=== PATIENT | male | born 1965 | race Caucasian/White ===

== ENCOUNTER 2022-05-22 22:38 | Emergency (ER) | payer SELFPAY ==
[2022-05-23] MEDS ORDERED: MORPHINE 4 MG/ML SYR ONE (00:24)
[2022-05-23] MEDS ORDERED: KETOROLAC 30 MG/ML INJ ONE (00:24)
--- NOTE | 2022-05-23 00:43 | EDPHYS ---
Physician Documentation [facility] Name: Lenin Marte Jr Age: 56 yrs Sex: Male : 1965 Arrival Date: 05/22/2022 Time: 22:41 Bed 7 Private MD: ED Physician Pravin Johns HPI: 05/23 00:00 This 56 yrs old Male presents to ER via Ambulatory with complaints of Mouth Problem. cp 00:00 The patient presents with pain. The problem is located in the right jaw. Onset: The cp symptoms/episode began/occurred gradually, and became worse today. Duration: The symptoms are continuous, and are steadily getting worse. Associated signs and symptoms: Pertinent negatives: dysphagia, fever, inability to eat. Severity of symptoms: in the emergency department the symptoms are unchanged, despite home interventions. Historical: - Allergies: 05/22 22:54 Stadol; as6 - Home Meds: 22:54 None [Active]; as6 - PMHx: 22:54 None; as6 - PSHx: 22:54 None; as6 - Immunization history:: Client reports having NOT received the Covid vaccine. - Social history:: Smoking status: Patient reports the use of cigarette tobacco products, smokes one pack cigarettes per day. ROS: 05/23 00:05 Constitutional: Negative for body aches, chills, fever, poor PO intake. cp 00:05 Eyes: Negative for injury, pain, redness, and discharge. cp 00:05 ENT: Positive for dental pain, Negative for drainage from ear(s), ear pain, sore throat, difficulty swallowing, difficulty handling secretions. 00:05 Neck: Negative for pain with movement, pain at rest, stiffness. 00:05 Respiratory: Negative for cough, shortness of breath, wheezing. 00:05 Skin: Negative for rash. 00:05 Neuro: Negative for headache. 00:05 All other systems are negative. Exam: 00:10 Constitutional: The patient appears in no acute distress, alert, awake, non-toxic, well cp developed, well nourished, uncomfortable. 00:10 Head/Face: Normocephalic, atraumatic. cp 00:10 Eyes: Periorbital structures: appear normal, Conjunctiva: normal, no exudate, no injection, Sclera: no appreciated abnormality, Lids and lashes: appear normal, bilaterally. 00:10 ENT: External ear(s): are unremarkable, Ear canal(s): are normal, clear, TM's: dullness, bilaterally, Nose: is normal, Mouth: Lips: moist, Oral mucosa: pink and intact, moist, Gums: reddened, swollen, on the right upper and lower gumline, abscess, is not appreciated, Posterior pharynx: Airway: no evidence of obstruction, patent, Tonsils: are normal in appearance, Uvula: midline, erythema, is not appreciated, exudate, is not appreciated, Dental exam: abscess, is not appreciated, dental caries, that is severe, diffusely, missing teeth, diffusely, pain, that is moderate, specifically in the upper right second molar (#2), upper right first molar (#3), upper right second bicuspid (#4), lower right second bicuspid (#29), lower right first molar (#30) and lower right second molar (#31), Voice: is normal. 00:10 Neck: ROM/movement: is normal, is supple, without pain, no nuchal rigidity, Lymph nodes: no appreciated lymphadenopathy. 00:10 Chest/axilla: Inspection: normal. 00:10 Cardiovascular: Rate: normal. 00:10 Respiratory: the patient does not display signs of respiratory distress, Respirations: normal. Vital Signs: 05/22 22:50 BP 150 / 98; Pulse 102; Resp 18 S; Temp 98.0(O); Pulse Ox 99% on R/A; Weight 61.23 kg as6 (R); Height 5 ft. 6 in. (167.64 cm) (R); Pain 8/10; 23:25 BP 149 / 96; Pulse 92; Pulse Ox 100% on R/A; Pain 10/10; kl 22:50 Body Mass Index 21.79 (61.23 kg, 167.64 cm) as6 MDM: 23:12 Patient medically screened. cp 05/23 00:42 Data reviewed: vital signs, nurses notes, and as a result, I will discharge patient. cp 00:42 Differential diagnosis: dental caries, dental abscess, pericoronitis, cp gingivostomatitis. Counseling: I had a detailed discussion with the patient and/or guardian regarding: the historical points, exam findings, and any diagnostic results supporting the discharge/admit diagnosis, the need for outpatient follow up, for definitive care, a dentist, to return to the emergency department if symptoms worsen or persist or if there are any questions or concerns that arise at home. Response to treatment: the patient's symptoms have markedly improved after treatment, and as a result, I will discharge patient. Administered Medications: 00:30 Drug: Ketorolac 30 mg Route: IM; Site: right ventrogluteal; kl 00:52 Follow up: Response: No adverse reaction; Pain is decreased ha1 00:30 Drug: morphine 4 mg Route: IM; Site: left ventrogluteal; kl 00:52 Follow up: Response: No adverse reaction; Pain is decreased; RASS: Alert and Calm (0) ha1 00:35 Drug: Clindamycin 300 mg Route: PO; kl 00:51 Follow up: Response: No adverse reaction ha1 Disposition Summary: 05/23/22 00:43 Discharge Ordered Location: Home cp Problem: new cp Symptoms: have improved cp Condition: Stable cp Diagnosis - Disorder of teeth and supporting structures, unspecified cp Followup: cp - With: Private Physician - When: 1 - 2 days - Reason: Recheck today's complaints Discharge Instructions: - Discharge Summary Sheet cp - Dental Pain cp Forms: - Medication Reconciliation Form cp - Thank You Letter cp - Antibiotic Education cp - Prescription Opioid Use cp Prescriptions: - Clindamycin HCl 300 mg Oral Capsule - take 1 capsule by ORAL route every 6 hours for 10 days; 40 capsule; Refills: 0, cp Product Selection Permitted - Ibuprofen 800 mg Oral Tablet - take 1 tablet by ORAL route every 8 hours As needed take with food; 30 tablet; cp Refills: 0, Product Selection Permitted - Tylenol-Codeine #3 300 mg-30 mg Oral - take 2 tablet by ORAL route every 8-10 hours; 12 tablet; Refills: 0, Product cp Selection Permitted Signatures: Oralia Mcallister RN RN kl Page, Corey, PA PA cp Slawson, Ashby, RN RN as6 Shirley Pastor RN ha1
--- NOTE | 2022-05-23 00:43 | ER ---
Nurse's Notes [facility] Name: Lenin Marte Jr Age: 56 yrs Sex: Male : 1965 Arrival Date: 05/22/2022 Time: 22:41 Bed 7 Private MD: Diagnosis: Disorder of teeth and supporting structures, unspecified Presentation: 05/22 22:50 Chief complaint: Patient states: "I have an exposed nerve in my mouth on the right as6 side. I've been needing to go to the dentist but I haven't". Coronavirus screen: At this time, the client does not indicate any symptoms associated with coronavirus-19. Ebola Screen: No symptoms or risks identified at this time. Initial Sepsis Screen: Does the patient meet any 2 criteria? HR > 90 bpm. Does the patient have a suspected source of infection? No. Patient's initial sepsis screen is negative. Risk Assessment: Do you want to hurt yourself or someone else? Patient reports no desire to harm self or others. Onset of symptoms was May 21, 2022. 22:50 Method Of Arrival: Ambulatory as6 22:50 Acuity: PAULA 3 as6 Historical: - Allergies: 22:54 Stadol; as6 - Home Meds: 22:54 None [Active]; as6 - PMHx: 22:54 None; as6 - PSHx: 22:54 None; as6 - Immunization history:: Client reports having NOT received the Covid vaccine. - Social history:: Smoking status: Patient reports the use of cigarette tobacco products, smokes one pack cigarettes per day. Screenin:25 Abuse screen: Denies threats or abuse. Nutritional screening: No deficits noted. kl Tuberculosis screening: Fall Risk None identified. Assessment: 23:24 General: Appears distressed, uncomfortable, Behavior is anxious. Pain: Complains of kl pain in right ear and right jaw Pain currently is 10 out of 10 on a pain scale. Quality of pain is described as sharp, throbbing. Neuro: No deficits noted. Cardiovascular: No deficits noted. Respiratory: No deficits noted. Airway is patent Trachea midline Respiratory effort is even, unlabored, Respiratory pattern is regular, symmetrical. GI: No deficits noted. No signs and/or symptoms were reported involving the gastrointestinal system. : No deficits noted. No signs and/or symptoms were reported regarding the genitourinary system. EENT: Reports pain. Derm: No deficits noted. No signs and/or symptoms reported regarding the dermatologic system. Vital Signs: 22:50 BP 150 / 98; Pulse 102; Resp 18 S; Temp 98.0(O); Pulse Ox 99% on R/A; Weight 61.23 kg as6 (R); Height 5 ft. 6 in. (167.64 cm) (R); Pain 8/10; 23:25 BP 149 / 96; Pulse 92; Pulse Ox 100% on R/A; Pain 10/10; kl 22:50 Body Mass Index 21.79 (61.23 kg, 167.64 cm) as6 ED Course: 22:41 Patient arrived in ED. ja2 22:54 Triage completed. as6 22:55 Arm band placed on. as6 23:09 Pravin Rosario PA is PHCP. cp 23:09 Pravin Johns MD is Attending Physician. cp 23:26 No provider procedures requiring assistance completed. 05/23 00:53 Patient has correct armband on for positive identification. Bed in low position. Call ha1 light in reach. Side rails up X 1. 00:53 Patient did not have IV access during this emergency room visit. ha1 Administered Medications: 00:30 Drug: Ketorolac 30 mg Route: IM; Site: right ventrogluteal; kl 00:52 Follow up: Response: No adverse reaction; Pain is decreased ha1 00:30 Drug: morphine 4 mg Route: IM; Site: left ventrogluteal; kl 00:52 Follow up: Response: No adverse reaction; Pain is decreased; RASS: Alert and Calm (0) ha1 00:35 Drug: Clindamycin 300 mg Route: PO; kl 00:51 Follow up: Response: No adverse reaction ha1 Medication: 00:53 VIS not applicable for this client. ha1 Outcome: 00:43 Discharge ordered by . cp 00:53 Discharged to home ambulatory. ha1 00:53 Condition: stable 00:53 Discharge instructions given to patient, Instructed on discharge instructions, follow up and referral plans. medication usage, Demonstrated understanding of instructions, follow-up care, medications, Prescriptions given X 3. 00:54 Patient left the ED. ha1 Signatures: Oralia Mcallister RN RN kl Pravin Rosario PA PA cp Alexander, Jessica ja2 Slawson, Ashby, RN RN as6 Shirley Pastor RN RN ha1 Corrections: (The following items were deleted from the chart) 00:52 00:51 Response: No adverse reaction ha1 ha1
[2022-05-23 01:42] VITALS: TEMP 98
[2022-05-23 01:43] VITALS: BP 149/96; O2SAT 100
== END 2022-05-23 00:54 | disposition home or self-care (01) ==
LOC: ER 22:38
DX: K08.9 Disorder of teeth and supporting structures, unspecified (principal); F17.210 Nicotine dependence, cigarettes, uncomplicated
CPT/HCPCS: 96372; 99283

== ENCOUNTER 2025-04-15 13:29 | Emergency (ER) | payer SELFPAY ==
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
[2025-04-15 14:45] LABS: Absolute Lymphocytes (CBC) 1.2 K/uL (0.7-4.9); Hematocrit 47.0 % (39.6-49.0); Hemoglobin 15.5 g/dL (13.6-17.9); MCH 29.0 pg (27.0-35.0); MCHC 33.1 g/dL (32.0-36.0); MCV 87.7 fL (80-100); MPV 7.5 fL (7.6-11.3); Nucleated RBC Absolute Count 0.0 (0-0); Nucleated Red Blood Cells % 0.0 % (0-0); RBC Red Blood Cell Count 5.36 M/uL (4.33-5.43); White Blood Count 7.20 thou/uL (4.3-10.9)
[2025-04-15 15:56] LABS: ALT/SGPT 65.0 U/L (16-61); AST/SGOT 26.0 U/L (15-37); Albumin 3.4 g/dL (3.4-5.0); Albumin/Globulin Ratio 1.0 (1.1-1.8); Alkaline Phosphatase 43.0 U/L (45-117); Anion Gap 5.4 mEq/L (5.0-15.0); BUN Blood Urea Nitrogen 12.0 mg/dL (7-18); Globulin 3.5 g/dL (2.3-3.5); Glucose Level 134.0 mg/dL (74-106); Potassium 3.4 mEq/L (3.5-5.1)
--- NOTE | 2025-04-15 16:03 | EDPHYS ---
Physician Documentation [facility] Name: Lenin Marte Jr Age: 59 yrs Sex: Male : 1965 Arrival Date: 04/15/2025 Time: 13:29 Bed 14 Private MD: ED Physician Smooth Bravo HPI: 04/15 16:02 This 59 yrs old Male presents to ER via Ambulatory with complaints of hernia. kb 16:02 Patient is a 59-year-old male who presents for hernia to left groin that has been there kb for years. States he has had it repaired once but it came back a couple of years ago. States he normally uses a hernia belt or tapes that but it has been getting worse lately.. Historical: - Allergies: 13:49 Stadol; hb - Immunization history:: Adult Immunizations up to date. - Infectious Disease History:: Denies. - Social history:: Smoking status: Patient denies any tobacco usage or history of. ROS: 15:55 Constitutional: As per HPI kb Exam: 15:55 Constitutional: This is a well developed, well nourished patient who is awake, alert, kb and in no acute distress. Head/Face: Normocephalic, atraumatic. ENT: Moist Mucous membranes Respiratory: Respirations even and unlabored. No increased work of breathing. Talking in full sentences Skin: Warm, dry with normal turgor. Normal color. MS/ Extremity: Pulses equal, no cyanosis. Neurovascular intact. Full, normal range of motion. Neuro: Awake and alert, GCS 15, oriented to person, place, time, and situation. 15:55 Abdomen/GI: Inspection: abdomen appears normal, Bowel sounds: normal, Palpation: abdomen is soft and non-tender, in all quadrants, Hernia: noted in the left inguinal area, easily reduced, Vital Signs: 13:46 BP 122 / 102; Pulse 112; Resp 18; Temp 98.7(O); Pulse Ox 100% on R/A; Weight 63.5 kg; hb Height 5 ft. 7 in. ; Pain 6/10; 15:00 BP 143 / 92; Pulse 90; Resp 16; Pulse Ox 99% ; me1 16:00 BP 134 / 92; Pulse 86; Resp 16; Temp 98.3; Pulse Ox 100% ; me1 13:46 Body Mass Index 21.93 (63.50 kg, 170.18 cm) hb 13:46 Pain Scale: Adult hb MDM: 13:44 Medical Screening Exam initiated kb 15:56 Differential diagnosis: hernia, bowel obstruction. Data reviewed: vital signs, nurses kb notes. Consideration of Admission/Observation Escalation of care including admission/observation considered. admission considered but hernia easily reduced. Counseling: I had a detailed discussion with the patient and/or guardian regarding the historical points, exam findings, and any diagnostic results supporting the discharge/admit diagnosis, lab results, radiology results, the need for outpatient follow up, a general surgeon, to return to the emergency department if symptoms worsen or persist or if there are any questions or concerns that arise at home. 04/15 13:49 Order name: CBC with Diff; Complete Time: 15:04 kb 04/15 13:49 Order name: CMP; Complete Time: 15:56 kb 04/15 13:49 Order name: CT Abd/Pelvis - Without Contrast; Complete Time: 15:04 kb 04/15 13:49 Order name: IV Saline Lock; Complete Time: 14:37 kb 04/15 13:49 Order name: Labs collected and sent; Complete Time: 14:38 kb 04/15 14:50 Order name: Labs - recollect needed: green top; Complete Time: 15:29 bc6 Administered Medications: No medications were administered Disposition Summary: 04/15/25 16:02 Discharge Ordered Notes: Location: Home kb Condition: Stable kb Diagnosis - Unilateral inguinal hernia, without obstruction or gangrene kb Followup: kb - With: Emergency Department - When: As needed - Reason: Worsening of condition Followup: kb - With: Private Physician - When: 2 - 3 days - Reason: Recheck today's complaints, Continuance of care, Re-evaluation by your physician Discharge Instructions: - Discharge Summary Sheet kb - Inguinal Hernia, Adult, [id number] kb Forms: - Medication Reconciliation Form kb - Antibiotic Education kb - Prescription Opioid Use kb - Patient Portal Instructions kb - Leadership Thank You Letter kb Signatures: Dispatcher [employer] Shefali Moon, CAYETANO SHI-Michelle Baez RN RN aTmmi Foster bc6 Osiris Stallings, SUE RN me1 Corrections: (The following items were deleted from the chart) 13:49 13:49 CBC+H.LAB.BRZ ordered. EDMS EDMS 13:49 13:49 COMPREHENSIVE METABOLIC PANEL+C.LAB.BRZ ordered. EDMS EDMS 13:49 13:49 Abdomen Pelvis Wo Con+CT.RAD.BRZ ordered. EDMS EDMS
--- NOTE | 2025-04-15 16:03 | ER ---
Nurse's Notes [facility] Name: Lenin Marte Jr Age: 59 yrs Sex: Male : 1965 Arrival Date: 04/15/2025 Time: 13:29 Bed 14 Private MD: Diagnosis: Unilateral inguinal hernia, without obstruction or gangrene Presentation: 04/15 13:46 Chief complaint: Has inguinal hernia, c/o worsening pain that radiates to left lower hb abdomen over the last year. Coronavirus screen: At this time, the client does not indicate any symptoms associated with coronavirus-19. Ebola Screen: No symptoms or risks identified at this time. Initial Sepsis Screen: Does the patient meet any 2 criteria? No. Patient's initial sepsis screen is negative. Does the patient have a suspected source of infection? No. Patient's initial sepsis screen is negative. Risk Assessment: Do you want to hurt yourself or someone else? Patient reports no desire to harm self or others. Onset of symptoms was April 15, 2025. 13:46 Method Of Arrival: Ambulatory hb 13:46 Acuity: PAULA 3 hb Historical: - Allergies: 13:49 Stadol; hb - Immunization history:: Adult Immunizations up to date. - Infectious Disease History:: Denies. - Social history:: Smoking status: Patient denies any tobacco usage or history of. Screenin:10 [facility] ED Fall Risk Assessment (Adult) History of falling in the last 3 months, me1 including since admission No falls in past 3 months (0 pts) Confusion or Disorientation No (0 pts) Intoxicated or Sedated No (0 pts) Impaired Gait No (0 pts) Mobility Assist Device Used No (0 pt) Altered Elimination No (0 pt) Score/Fall Risk Level 0 - 2 = Low Risk Maintained a safe environment, Provided non-skid footwear, Hourly rounding (assess needs \T\ fall precautionary measures) done. Abuse screen: Denies threats or abuse. Nutritional screening: No deficits noted. Tuberculosis screening: No symptoms or risk factors identified. Assessment: 14:10 General: Appears in no apparent distress. well groomed, well developed, well nourished, me1 Behavior is calm, cooperative, appropriate for age, Reports Has inguinal hernia, c/o worsening pain that radiates to left lower abdomen over the last year. Pain: Complains of pain in left lower quadrant and left femoral area Pain does not radiate. Pain currently is 6 out of 10 on a pain scale. Quality of pain is described as pressure, Pain began gradually, Is continuous. Neuro: Level of Consciousness is awake, alert, obeys commands, Oriented to person, place, time, situation, Appropriate for age. Cardiovascular: Patient's skin is warm and dry. Respiratory: Airway is patent Respiratory effort is even, unlabored, Respiratory pattern is regular, symmetrical. GI: Reports lower abdominal pain, since intermittent over the past year. Worse lately. : No signs and/or symptoms were reported regarding the genitourinary system. EENT: No signs and/or symptoms were reported regarding the EENT system. Derm: Skin is intact, is healthy with good turgor, Skin is normal. Musculoskeletal: Circulation, motion, and sensation intact. Range of motion: intact in all extremities. Vital Signs: 13:46 BP 122 / 102; Pulse 112; Resp 18; Temp 98.7(O); Pulse Ox 100% on R/A; Weight 63.5 kg; hb Height 5 ft. 7 in. ; Pain 6/10; 15:00 BP 143 / 92; Pulse 90; Resp 16; Pulse Ox 99% ; me1 16:00 BP 134 / 92; Pulse 86; Resp 16; Temp 98.3; Pulse Ox 100% ; me1 13:46 Body Mass Index 21.93 (63.50 kg, 170.18 cm) hb 13:46 Pain Scale: Adult hb ED Course: 13:30 Patient arrived in ED. al6 13:31 Shefali Dunlap FNP-C [facility]. kb 13:31 Smooth Bravo MD is Attending Physician. kb 13:48 Triage completed. hb 14:07 CT Abd/Pelvis - Without Contrast In Process Unspecified. EDMS 14:10 Osiris Stallings, SUE is Primary Nurse. me1 14:10 No provider procedures requiring assistance completed. me1 14:10 Patient has correct armband on for positive identification. Bed in low position. Call me1 light in reach. Side rails up X 1. Provided Education on: POC. Verbalized understanding. Client placed on continuous cardiac and pulse oximetry monitoring. NIBP monitoring applied. Pulse ox on. NIBP on. 14:10 Arm band placed on Patient placed in an exam room. me1 14:38 CBC with Diff Sent. me1 14:38 CMP Sent. me1 14:38 Initial lab(s) drawn, by me, sent to lab. Inserted saline lock: 22 gauge in right hand, me1 using aseptic technique. 16:14 IV discontinued, intact, bleeding controlled, No redness/swelling at site. Pressure me1 dressing applied. Administered Medications: No medications were administered Medication: 14:10 VIS not applicable for this client. me1 Outcome: 16:02 Discharge ordered by . edith 16:14 Discharged to home ambulatory, me1 16:14 Condition: stable 16:14 Discharge instructions given to patient, Instructed on discharge instructions, follow up and referral plans. Demonstrated understanding of instructions, follow-up care, 16:15 Patient left the ED. id1 Signatures: Dispatcher [employer] EDShefali Roldan, LOWER IN SUPERVISOR-C LOWER IN SUPERVISOR-CkMichelle Acosta RN RN Osiris Stallings RN RN [facility] Marisela Butt6 Corrections: (The following items were deleted from the chart) 15:16 13:46 Chief complaint: Has inguinal hernia, c/o worsening pain that radiates to left me1 lower abdomen over the last year hb
[2025-04-15 17:10] VITALS: BP 134/92; TEMP 98.3; O2SAT 100
== END 2025-04-15 16:15 | disposition home or self-care (01) ==
LOC: ER 13:29
DX: K40.90 Unilateral inguinal hernia, without obstruction or gangrene, not specified as recurrent (principal)
CPT/HCPCS: 36415; 74176; 80053; 85025; 99284